=== PATIENT | female | born 1980 | race Caucasian/White ===

== ENCOUNTER 2019-02-09 15:32 | Inpatient (IN) | payer BC ==
[~2019-02-09] VITALS: Ht 160 cm; Wt 110.3 kg
[~2019-02-09 15:32] MED LIST: ALBUTEROL SULF8.5 GM IH; FOLIC ACID 1 MG1 MG PO; FOLIC ACID1 MG PO; GLUCOPHAGE500 MG PO; KEPPRA 500 MG500 M1 PO
[2019-02-09 15:39] VITALS: BP 165/102
[2019-02-09] MEDS ORDERED: CEFUROXIME250 MG PO (15:45)
[2019-02-09 16:15] LABS: ABSOLUTE BASOPHILS 0.1 thou/uL (0.0-0.2); ABSOLUTE EOSINOPHILS 0.1 thou/uL (0.0-0.7); ABSOLUTE LYMPHOCYTES 1.2 thou/uL (0.8-5.3); ABSOLUTE MONOCYTES 0.6 thou/uL (0.0-1.2); ABSOLUTE NEUTROPHILS 7.4 thou/uL (1.6-8.1); BASOPHILS 0.6 %; EOSINOPHILS 1.4 %; HEMATOCRIT 34.9 % (37.0-47.0); HEMOGLOBIN 12.2 gm/dL (12.0-15.0); LYMPHOCYTES 12.5 %; MCH 29.4 pg (26.0-34.0); MCHC 34.8 g/dL (28.0-37.0); MCV 84.5 fL (80.0-100.0); MONOCYTES 5.9 %; MPV 7.7 fl. (7.2-11.1); NUCLEATED RBCS 0 /100WBC; PLATELET COUNT* 260 thou/uL (150-400); POLYS 79.6 %; RBC 4.14 mil/uL (4.20-5.00); RDW-CV 13.3 % (10.5-14.5); WBC 9.3 thou/uL (4.0-11.0)
[2019-02-09 16:24] LABS: CALCIUM 9.4 mg/dL (8.5-10.1); CREATININE 0.8 mg/dL (0.6-1.3); POTASSIUM 3.6 mmol/L (3.5-5.1)
[2019-02-09 16:34] LABS: ALBUMIN 3.1 g/dL (3.4-5.0); INR 1.1; PROTIME 11.1 Seconds (9.20-11.50); TOTAL BILIRUBIN 0.7 mg/dL (<0.1-1.0); TOTAL PROTEIN 7.2 g/dL (6.4-8.2)
[2019-02-09 19:31] LABS: URINE BILIRUBIN NEGATIVE (Negative); URINE BLOOD NEGATIVE (Negative); URINE CLARITY CLEAR; URINE COLOR YELLOW; URINE GLUCOSE-RANDOM NEGATIVE (Negative); URINE KETONES NEGATIVE (Negative); URINE LEUKOCYTES-REFLEX TRACE (Negative); URINE NITRITE-REFLEX NEGATIVE (Negative); URINE PROTEIN NEGATIVE (Negative); URINE SPECIFIC GRAVITY <= 1.005 (1.005-1.030); URINE UROBILINOGEN 0.2 E.U./dl (0.2-1.0)
[2019-02-09 19:40] LABS: SQUAMOUS 0-3 Few /LPF (0-3)
[2019-02-09 19:41] LABS: URINE RBC None Seen /HPF (0-2); URINE WBC-REFLEX 0-5 Rare /HPF (0-5)
[2019-02-09 19:42] LABS: BACTERIA-REFLEX 1-9 Few /HPF (None Seen); CASTS None Seen /LPF (None Seen); CRYSTALS None Seen /LPF (None Seen); MUCUS None Seen strn/LPF (None Seen)
[2019-02-09 19:44] VITALS: BP 140/80
[2019-02-09 20:00] VITALS: BP 124/83
[2019-02-09] MEDS ORDERED: PRESERVISION A1 EAC2 PO (21:35)
[2019-02-10] VITALS: BP 132/90
[2019-02-10 04:00] VITALS: BP 131/91
[2019-02-10 05:00] LABS: HEMATOCRIT 33.5 % (37.0-47.0); HEMOGLOBIN 11.5 gm/dL (12.0-15.0); MCH 28.8 pg (26.0-34.0); MCHC 34.3 g/dL (28.0-37.0); MCV 83.8 fL (80.0-100.0); MPV 7.9 fl. (7.2-11.1); RDW-CV 13.2 % (10.5-14.5); WBC 7.7 thou/uL (4.0-11.0)
[2019-02-10 05:22] LABS: ALBUMIN 2.7 g/dL (3.4-5.0); CALCIUM 9.2 mg/dL (8.5-10.1); CREATININE 0.9 mg/dL (0.6-1.3); MAGNESIUM 1.9 mg/dL (1.8-2.4); POTASSIUM 3.5 mmol/L (3.5-5.1); TOTAL BILIRUBIN 0.6 mg/dL (<0.1-1.0); TOTAL PROTEIN 6.7 g/dL (6.4-8.2)
--- NOTE | 2019-02-10 05:44 | NUR ---
RECEIVED REPORT FROM RACQUEL SANTOS. PT TRANSFERRED TO 208. PT A&OX4. VSS. 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 ADMISSION HISTORY & PHYSCIAL ASSESSMENT COMPLETED AND CHARTED. PT TRACING SR/SB ON TELE. PT TRACING SR ON TELE. PT UP ADLIB TO RESTROOM. ORIENTED TO ROOM & CALL LIGHT. PT ABLE TO SLEEP WELL ON BED. CALL LIGHT WITHIN REACH.
[2019-02-10 07:45] VITALS: BP 113/75
--- NOTE | 2019-02-10 10:01 | EKG ---
[place] [address] ELECTROCARDIOGRAM REPORT Name: STARLA JOHNSON Room: [address] ADM IN .R.#: [id number] Admission: 02/09/19 Attend Phys: Roberta Lilly MD Discharge: Date of : 82 Report #: [id number] THIS REPORT FOR: //name// [facility] ED Test Date: 2019-02-09 Test Time: 15:58:07 Pat Name: STARLA JOHNSON Department: Room: [facility] Gender: F Rn Traveling: [place] : 1980 Requested By: Salazar Keith Order Number: [id number] MD: Renato Prieto Measurements Intervals [place] Rate: 97 P: 34 DE: 176 QRS: 43 QRSD: 77 T: 4 QT: 348 QTc: 442 Interpretive Statements Sinus rhythm Probable left atrial enlargement Borderline repolarization abnormality Baseline wander in lead(s) V2,V3 Compared to ECG 07/28/2013 10:30:14 No significant changes Electronically Signed On 02-10-2019 10:01:16 CDT by Renato Prieto [email or web address] <ELECTRONICALLY SIGNED> By: Renato Prieto MD, FACC 02/10/19 1001 [id number] 1558 Renato Prieto MD, FAC /EPI
[2019-02-10 12:50] VITALS: BP 115/67
--- NOTE | 2019-02-10 14:11 | NUR ---
Pt is A&O. Resides at home. Active and independent. No DME. No hx of HH or SNF. Goal is home at mi. Following.
--- NOTE | 2019-02-10 18:58 | NUR ---
ASSUSSMED CARE OF PT APPROX 0730. REASSESSMENT COMPLETED CHARTED. MEDICATIONS GIVEN CHARTED. PT EDUCATION ABOUT NEW MEDICATIONS, PT VERBALIZED UNDERSTANDING. PT SAMPLES FOR LAB COLLECTED. PT HAS NOT COUGHED UP ANY MUCUS THIS SHIFT. HOULRY ROUNDING FOR NEEDS AND SAFTEY. CALL LIGHT WITHIN REACH AND NEEDS MET.
[2019-02-10 20:00] VITALS: BP 112/74
[2019-02-11] VITALS: BP 97/62
[2019-02-11 04:00] VITALS: BP 109/73
--- NOTE | 2019-02-11 06:14 | NUR ---
ASSUMED CARE OF PT AFTER REPORT AT 1930. PT A&OX4. VSS. PHYSICAL ASSESSMENT COMPLETED AND CHARTED. PT ON RA. PT TRACING SR/SB ON TELE. PT UPADLIB TO RESTROOM. PT COMPLAINED OF HEADACHE-MEDS GIVEN PER JUN. PT ABLE TO SLEEP WELL ON BED. CALL LIGHT WITHIN REACH.
[2019-02-11 08:36] VITALS: BP 128/82
[2019-02-11 12:14] VITALS: BP 128/82
--- NOTE | 2019-02-11 12:45 | NUR ---
VSS, ASSUMED CARE IN THE AM, ASSESSMENT PERFORMED AND CHARTED, FALL PRECAUTIONS IN PLACE AND CALL LIGHT IN REACH, PT IS A&O4 AND ON RA AND IS TRACING SR ON THE MONITOR, PT IS UP AD JODY AND DENIES ANY PAIN THIS AM, AT THIS TIME PT HAS BEEN DISCHARGE IV AND TELE MONITOR HAVE BEEN REMOVED, PT TAKEN OUT VIA WHEEL CHAIR TO CAR WITH FAMILY.
== END 2019-02-11 12:30 | disposition home or self-care (01) | DRG 196 ==
LOC: M.ERS 15:32 → M.2W 18:29 → M.TBA-ER 18:29 → M.2W 20:00 → M.TBA-ER 20:24 → M.2W 02-11 12:30
PROVIDERS: Emergency Medicine; Family Medicine; ADMIT Internal Medicine
DX: J84.89 Other specified interstitial pulmonary diseases (principal); J96.01 Acute respiratory failure with hypoxia; K85.90 Acute pancreatitis without necrosis or infection, unspecified; R65.10 Systemic inflammatory response syndrome (SIRS) of non-infectious origin without acute organ dysfunction; J45.909 Unspecified asthma, uncomplicated; E66.01 Morbid (severe) obesity due to excess calories; E11.9 Type 2 diabetes mellitus without complications; F17.210 Nicotine dependence, cigarettes, uncomplicated; E11.65 Type 2 diabetes mellitus with hyperglycemia; T38.0X5A Adverse effect of glucocorticoids and synthetic analogues, initial encounter; Z68.41 Body mass index [BMI] 40.0-44.9, adult; Z79.84 Long term (current) use of oral hypoglycemic drugs; Z79.899 Other long term (current) drug therapy; Z87.440 Personal history of urinary (tract) infections; Z82.49 Family history of ischemic heart disease and other diseases of the circulatory system; Z83.3 Family history of diabetes mellitus; Y92.89 Other specified places as the place of occurrence of the external cause

== ENCOUNTER 2019-02-15 14:58 | Inpatient (IN) | payer BC ==
[~2019-02-15] VITALS: Ht 162.6 cm; Wt 109.8 kg
--- NOTE | ~2019-02-15 | CON ---
[address] [address] CONSULTATION Name: ALEXSTARLA M Room: [address] IN M.R.#: [id number] Admission: 02/15/19 Attend Phys: Sofi Tena Discharge: Date of : 82 Report #: [id number] THIS REPORT FOR: //name// CC: ANGELITO PICKARD APRN Physician staff Freddie Horner DICTATED BY: Aaliyah TORREZ DATE OF SERVICE: 02/17/2019 Please note at the time of this dictation, the patient was seen and physically examined by myself. REASON FOR CONSULTATION: Abdominal pain, pancreatitis. HISTORY OF PRESENT ILLNESS: This is a 39-year-old female who presented to the Emergency Room after being discharged from [place] for her pneumonia. The patient states she was feeling significantly better and went home on her ____ and was feeling significant but she denied any nausea or vomiting. It appears too that she also had some steroids at that time. She stated yesterday evening, the day prior to admission, she started having recurrent upper abdominal pain that she was unable to tolerate radiating into her back, prompting her to come in for further evaluation. She did have some nausea, but no vomiting. The patient was hospitalized on 02/04/2019 at [facility] for abdominal discomfort and was found to have pancreatitis. She states she had an ultrasound done there, but does not know the findings. The patient still does have her gallbladder as well. Prior to admission several weeks before, she had some abdominal discomfort and thought she had pulled a muscle, went and saw her PCP and she was no longer having pain. At this time, it came back with a vengeance, in which she had significant nausea, she had loss of appetite and worsening of her pain and she was noted to have an elevated lipase level at that time. The patient was discharged on the and on the , she came back to [place] when she was staying at her parents' house because of increased shortness of breath and having a little fever and chills and she was noted to have pneumonia, in which she was treated for, then went home 4 days ago and back again for her second admission. She is still complaining of abdominal discomfort in the upper quad radiating into her back. She went down and had an MRCP done this morning, but results are still pending. ALLERGIES: No known drug allergies. MEDICATIONS: From home metformin, Keppra, and Ceftin was recently discontinued [place] [address] CONSULTATION Name: STARLA JOHNSON Room: [address] IN ..#: [id number] Admission: 02/15/19 Attend Phys: Sofi Tena Discharge: Date of : 82 Report #: [id number] PAST MEDICAL HISTORY: History of seizures, history of sleep apnea, pancreatitis, diabetes, UTI, and morbid obesity. FAMILY HISTORY: Negative for any GI or female cancers. SOCIAL HISTORY: Denies any alcohol, tobacco, or illegal drug use. REVIEW OF SYSTEMS: A 12-point review of systems is essentially negative except what is mentioned in the HPI. PHYSICAL EXAMINATION: VITAL SIGNS: Temperature 36.9, pulse 67, respirations 18, blood pressure 141/78. HEART: Regular rate and rhythm. LUNGS: Clear. ABDOMEN: Soft, positive bowel sounds in all 4 quadrants with tenderness noted in the upper quads. LABORATORY DATA: Hemoglobin today was 11.6, white count on admission was 15.2, she is down to 10.8, platelets 262. GFR is 110. ESR is 56 and elevated, liver enzymes are completely normal on this admission. Lipids are okay. Lipase shows 3560 on this admission. When the patient was admitted on 02/10/2019, her lipase was only 283 and LFTs were normal at that time as well. CT done on this admission showed some improvement of her pancreatitis that was noted. No mention of any CBD dilatation was noted. Again, MRCP is pending. IMPRESSION: 1. Recurrent pancreatitis. 2. Leukocytosis. 3. Elevated ALT. 4. Recent pneumonia and treated. PLAN: 1. MRCP results pending. 2. We will keep her n.p.o. until those results have been noted. If they are negative, she can start clear liquids. 3. Continue her IV fluids. 4. Further recommendations to be made once the above have all been noted. Thank you for allowing us to participate in this patient's care. Please do not hesitate to call with any questions in regard to this consult. By: [id number] Maldonado MD /ashley
[~2019-02-15 14:58] MED LIST changes: +CEFUROXIME250 MG PO; +PRESERVISION A1 EAC2 PO
[2019-02-15 15:00] VITALS: BP 138/41
[2019-02-15 15:34] LABS: HEMATOCRIT 39.9 % (37.0-47.0); MCH 29.3 pg (26.0-34.0); MCHC 35.1 g/dL (28.0-37.0); MCV 83.5 fL (80.0-100.0); MPV 7.4 fl. (7.2-11.1); NUCLEATED RBCS 0 /100WBC; PLATELET COUNT* 371 thou/uL (150-400); RBC 4.77 mil/uL (4.20-5.00); RDW-CV 13.2 % (10.5-14.5); URINE BILIRUBIN NEGATIVE (Negative); URINE BLOOD NEGATIVE (Negative); URINE CLARITY CLEAR; URINE COLOR YELLOW; URINE GLUCOSE-RANDOM NEGATIVE (Negative); URINE KETONES NEGATIVE (Negative); URINE LEUKOCYTES-REFLEX NEGATIVE (Negative); URINE NITRITE-REFLEX NEGATIVE (Negative); URINE PROTEIN NEGATIVE (Negative); URINE SPECIFIC GRAVITY 1.015 (1.005-1.030); URINE UROBILINOGEN 0.2 E.U./dl (0.2-1.0); WBC 15.2 thou/uL (4.0-11.0)
[2019-02-15 15:46] LABS: CALCIUM 9.7 mg/dL (8.5-10.1); CREATININE 0.9 mg/dL (0.6-1.3); POTASSIUM 4.1 mmol/L (3.5-5.1)
[2019-02-15 15:51] LABS: ALBUMIN 3.5 g/dL (3.4-5.0); TOTAL BILIRUBIN 0.4 mg/dL (<0.1-1.0); TOTAL PROTEIN 7.5 g/dL (6.4-8.2)
[2019-02-15 16:08] LABS: ABSOLUTE EOSINOPHILS 0.5 thou/uL (0.0-0.7); ABSOLUTE LYMPHOCYTES 3.3 thou/uL (0.8-5.3); ABSOLUTE MONOCYTES 0.8 thou/uL (0.0-1.2); ABSOLUTE NEUTROPHILS 10.6 thou/uL (1.6-8.1); PLATELET ESTIMATE ADEQUATE
[2019-02-15 19:42] VITALS: BP 122/85
[2019-02-16] VITALS (7 sets, daily range): BP systolic 112–135; BP diastolic 64–88
--- NOTE | 2019-02-16 19:33 | NUR ---
PATIENT ARRIVED FROM ER THIS AFTERNOON. PATIENT SETTLED TO ROOM AND HISTORY, ASSESSMENT AND VITALS COMPLETED AND DOCUMENTED. PATIENT HAS HAD COMPLAINTS OF ABDOMINAL PAIN, TREATED ADEQUATELY WITH TORADOL AND FENTANYL. PATIENT REMAINS NPO. PATIENT IS UP AD JODY IN ROOM. PATIENT DENIES ANY NEEDS AT THIS TIME. CALL LIGHT WITHIN REACH. WILL CONTINUE TO MONITOR.
[2019-02-17 04:31] LABS: HEMATOCRIT 34.7 % (37.0-47.0); MCH 28.3 pg (26.0-34.0); MCHC 33.6 g/dL (28.0-37.0); MCV 84.4 fL (80.0-100.0); MPV 7.1 fl. (7.2-11.1); RBC 4.11 mil/uL (4.20-5.00); RDW-CV 13.1 % (10.5-14.5); WBC 10.8 thou/uL (4.0-11.0)
[2019-02-17 04:33] LABS: HEMOGLOBIN 11.6 gm/dL (12.0-15.0)
[2019-02-17 04:46] LABS: ALBUMIN 2.7 g/dL (3.4-5.0); ALKALINE PHOSPHATASE 41 U/L (46-116); ANION GAP 9 mmol/L (7-16); BUN 6 mg/dL (7-18); CALCIUM 8.6 mg/dL (8.5-10.1); CHLORIDE 105 mmol/L (98-107); CHOLESTEROL 155 mg/dL (<200); CO2 24 mmol/L (21-32); CREATININE 0.6 mg/dL (0.6-1.3); GLUCOSE 142 mg/dL (70-99); HDL CHOLESTEROL 27 mg/dL (>40); LDL CHOLESTEROL 110 mg/dL (<100); MAGNESIUM 1.8 mg/dL (1.8-2.4); POTASSIUM 4.7 mmol/L (3.5-5.1); SGOT 9 U/L (15-37); SGPT 34 U/L (30-65); SODIUM 138 mmol/L (136-145); TC:HDL 5.7 Ratio (Not establshd); TOTAL BILIRUBIN 0.7 mg/dL (<0.1-1.0); TOTAL PROTEIN 6.1 g/dL (6.4-8.2); TRIGLYCERIDE 92 mg/dL (<150); VLDL 18 mg/dL (<40)
[2019-02-17 04:48] LABS: SERUM ASSESSMENT Clear
--- NOTE | 2019-02-17 06:37 | NUR ---
PATIENT SLEPT MOST OF THE NIGHT. IV FLUIDS CONTINUE TO INFUSE ORDERED. PATIENT WAS GIVEN PAIN MEDICINE TWICE THIS SHIFT. WILL CONTINUE TO MONITOR.
[2019-02-17 08:00] VITALS: BP 141/78
--- NOTE | 2019-02-17 13:12 | NUR ---
Nutrition: Pt assessed for admit DX of pancreatitis. Lipase 3560, albumin 2.7, BG controlled. Wt: 242#. Pt can have liquids today. Per notes, following up on labs again tomorrow. RD will follow up then, 02/18/19.
[2019-02-17 16:00] VITALS: BP 115/70
--- NOTE | 2019-02-17 19:06 | NUR ---
PATIENT UP IN SHOWER. PATIENT IS UP AD JODY. PATIENT HAS HAD COMPLAINTS OF PAIN TO ABDOMEN TREATED ADEQUATELY WITH MEDICATION. PATIENT HAD MRCP THIS AM WITHOUT INCIDENT. PATIENT TOLERATING CLEAR LIQUID DIET. PATIENT DENIES ANY NEEDS AT THIS TIME.
[2019-02-17 20:01] VITALS: BP 141/90
[2019-02-18 05:06] LABS: HEMOGLOBIN 11.3 gm/dL (12.0-15.0); MCH 28.6 pg (26.0-34.0); MCHC 34.2 g/dL (28.0-37.0); MCV 83.7 fL (80.0-100.0); MPV 7.2 fl. (7.2-11.1); RBC 3.94 mil/uL (4.20-5.00)
[2019-02-18 05:07] LABS: IgA 96 mg/dL (87-352); IgM 193 mg/dL (26-217)
--- NOTE | 2019-02-18 05:10 | NUR ---
PATIENT IS ANXIOUS ABOUT DIAGNOSIS SO WE SPOKE ABOUT PREVENTION AND HEALTH MAINTENANCE. SHE WAS ABLE TO GET COMFORTABLE IN THE RECLINER OVERNIGHT. SHE DID HAVE TORODOL AND FENTANYL FOR PAIN AND DISCOMFORT. SHE IS UP AD JODY TO THE RESTROOM AND HAS NOT HAD ANY ISSUES TOLERATING CLEAR LIQUID DIET. REPORTS NO NEW WORSENING OF SYMPTOMS. GI TO DECIDE NEXT STEP. WILL CONTINUE TO MONITOR.
[2019-02-18 05:16] LABS: ALBUMIN 2.6 g/dL (3.4-5.0); CALCIUM 8.9 mg/dL (8.5-10.1); CREATININE 0.7 mg/dL (0.6-1.3); POTASSIUM 4.3 mmol/L (3.5-5.1); TOTAL BILIRUBIN 0.6 mg/dL (<0.1-1.0); TOTAL PROTEIN 6.3 g/dL (6.4-8.2)
[2019-02-18 07:35] VITALS: BP 109/77
--- NOTE | 2019-02-18 11:25 | NUR ---
Nutrition: follow up note. Pt tolerating CLD. GI to decide next steps, per RN notes. Acute pancreatitis, pt educated. Wt: 242#. Lipase 268, BG 140, alb 2.6, prealb 14.2. No nutrition interventions needed at this time. RD available. Mild to moderate risk.
[2019-02-18 15:50] VITALS: BP 110/72
--- NOTE | 2019-02-18 19:03 | NUR ---
PT A&OX4 VSS. PT DIET ADVANCED TO FULL LIQUIDS. NS CONTINUES TO RUN AT 150ML/HOUR. IV PATENT, NO REDNESS/SWELLING AT SITE. PT UP AD JODY, GAIT STEADY. NO COMPLAINTS/CONCERNS VOICED. PT REPORTS BM TODAY. IV TORDOL FOR PAIN THIS AFTERNOON TOLERATED WELL. FENTANYL IV FOR C/O PAIN FOLLOWING ICE CREAM AT DINNER. PT RESTS IN RECLINER CALL LIGHT IN REACH.
[2019-02-18 21:09] VITALS: BP 135/81
[2019-02-18 22:06] LABS: IgG 595 mg/dL (700-1600)
--- NOTE | 2019-02-19 05:55 | NUR ---
PATIENT REPORTED NO WORSENING OF PAIN. EDUCATED ON DIET AND NOT TO EAT DAIRY OR HIGH FAT FOODS. SHE HAS VOICED THAT SHE UNDERSTANDS THIS NOW. PAIN MANAGMENT AND IMPROVEMENT OF INFLAMMATION IS THE PLAN. WILL CONTINUE TO MONITOR
[2019-02-19 07:50] VITALS: BP 129/92
[2019-02-19 16:00] VITALS: BP 118/89
--- NOTE | 2019-02-19 17:15 | NUR ---
PATIENT RESTING UP IN CHAIR. PATIENT IS UP AD JODY IN ROOM AND HAS WALKED IN HALLWAYS TODAY. PATIENT TOLERATED FULL LIQUID DIET FOR BREAKFAST AND LUNCH, DIET ADVANCED FOR DINNER. PATIENT HAS DENIED ANY PAIN TODAY. PATIENT HAS IV FLUIDS INFUSING AT 150ML/HR. PATIENT DENIES ANY NEEDS AT THIS TIME. CALL LIGHT WITHIN REACH.
[2019-02-20] VITALS: BP 126/81
[2019-02-20 04:19] LABS: HEMATOCRIT 30.7 % (37.0-47.0); HEMOGLOBIN 10.5 gm/dL (12.0-15.0); MCH 28.7 pg (26.0-34.0); MCHC 34.3 g/dL (28.0-37.0); MCV 83.7 fL (80.0-100.0); MPV 7.3 fl. (7.2-11.1); RBC 3.67 mil/uL (4.20-5.00); RDW-CV 13.4 % (10.5-14.5); WBC 5.8 thou/uL (4.0-11.0)
--- NOTE | 2019-02-20 04:41 | NUR ---
PATIENT SLEPT WELL DURING THIS SHIFT. PT UP AD JODY TO BATHROOM. PT DENIES NAUSEA. PT REQUESTED SLEEP AID AND ORDER RECEIVED FOR MELATONIN. PT REQUESTED TORADOL X1 AT HS FOR BACK PAIN. FLUIDS INFUSING PER DR ORDER. FREQUENTLY USED ITEMS AND CALL LIGHT WITHIN REACH. SIDERAILS UPX2. WILL CONTINUE TO MONITOR.
[2019-02-20 04:50] LABS: ALBUMIN 2.3 g/dL (3.4-5.0); CALCIUM 9.1 mg/dL (8.5-10.1); CREATININE 0.8 mg/dL (0.6-1.3); POTASSIUM 4.2 mmol/L (3.5-5.1); TOTAL BILIRUBIN 0.3 mg/dL (<0.1-1.0); TOTAL PROTEIN 5.8 g/dL (6.4-8.2)
[2019-02-20 07:50] VITALS: BP 128/87
[2019-02-20] MEDS ORDERED: PANCRELIPASE PO (12:35)
[2019-02-20 13:11] VITALS: BP 128/87
--- NOTE | 2019-02-20 14:15 | NUR ---
PATIENT DISCHARGED TO HOME. DISCHARGE PAPERS REVIEWED AND SIGNED. PRESCRIPTIONS AND INFORMATION SHEETS GIVEN. IV REMOVED. PATIENT INSTRUCTED TO GO TO GI OFFICE FOR MEDICATION SAMPLES. PATIENT DENIES ANY FURTHER NEEDS AT THIS TIME. PATIENT TAKEN BY WHEELCHAIR TO EXIT. LEFT WITH MOM.
== END 2019-02-20 14:15 | disposition home or self-care (01) | DRG 439 ==
LOC: M.ERS 14:58 → M.TBA-ER 16:20 → M.3W 16:20 → M.TBA-ER 02-16 12:09 → M.3W 02-16 13:37
PROVIDERS: Family Medicine; Internal Medicine; Internal Medicine Gastroenterology; ADMIT Internal Medicine
DX: K85.90 Acute pancreatitis without necrosis or infection, unspecified (principal); Z68.41 Body mass index [BMI] 40.0-44.9, adult; E66.01 Morbid (severe) obesity due to excess calories; E11.9 Type 2 diabetes mellitus without complications; F17.210 Nicotine dependence, cigarettes, uncomplicated; G47.33 Obstructive sleep apnea (adult) (pediatric); R56.9 Unspecified convulsions; Z87.440 Personal history of urinary (tract) infections; Z87.01 Personal history of pneumonia (recurrent); Z83.3 Family history of diabetes mellitus; Z82.49 Family history of ischemic heart disease and other diseases of the circulatory system